=== PATIENT | male | born 1960 | race Caucasian/White ===

== ENCOUNTER 2016-07-15 07:39 | Inpatient (IN) | payer MEDICAID, OTHER ==
[~2016-07-15] VITALS: Ht 177.8 cm; Wt 135.6 kg
[2016-07-15] VITALS (15 sets, daily range): BP systolic 98–138; BP diastolic 55–80
[2016-07-15] MEDS ORDERED: ALBUTEROL FS 2.5 MG/3 ML VIAL.NEB ONE (08:05)
[2016-07-15] MEDS ORDERED: ALBUTEROL FS 2.5 MG/3 ML VIAL.NEB NEB ONE (08:30)
[2016-07-15 08:41] LABS: BASOPHILS % (AUTO) 0.5 % (0.0-2.0); DIFF TOTAL % 100 %; LYMPHOCYTES # (AUTO) 0.5 /CMM (0.8-4.8); MEAN CORPUSCULAR HEMOGLOBIN 26 PG (26.0-33.0); MEAN CORPUSCULAR HGB CONC 33 g/dl (31.0-36.0); MEAN CORPUSCULAR VOLUME 78 fL (80-96); MONOCYTES # (AUTO) 0.5 /CMM (0.1-1.30); MONOCYTES % (AUTO) 14.9 % (2.0-12.0); NEUTROPHILS # (AUTO) 2.1 /CMM (1.8-8.9); NEUTROPHILS % (AUTO) 68.6 % (43.0-81.0); PLATELET COUNT (AUTO) 63 /CMM (150-450); RED BLOOD CELL COUNT(AUTO) 2.44 MIL/uL (4.5-6.0); WHITE BLOOD COUNT (AUTO) 3.1 K/uL (4.3-11.0)
[2016-07-15 08:42] LABS: CALCIUM, SERUM 7.8 mg/dL (8.5-10.1); CREATININE 0.8 mg/dL (0.6-1.3); POTASSIUM 4.2 mmol/L (3.5-5.1)
[2016-07-15 08:43] LABS: HEMOGLOBIN 6.2 g/dL (13.5-17.5)
[2016-07-15 08:44] LABS: HEMATOCRIT 19 % (39-51)
[2016-07-15 08:50] LABS: TROPONIN I 0.019 ng/mL (0.00-0.056)
[2016-07-15 08:52] LABS: LACTIC ACID 0.8 mmol/L (0.4-2.0)
[2016-07-15 08:54] LABS: ALBUMIN 2.8 g/dL (3.4-5.0); BILIRUBIN,DIRECT 0.2 mg/dL (0.0-0.2); BILIRUBIN,TOTAL 0.6 mg/dL (0.2-1.0); INDIRECT BILIRUBIN 0.4 mg/dL (0.0-1.1); TOTAL PROTEIN, SERUM 5.7 g/dL (6.4-8.2)
[2016-07-15 09:00] LABS: INR 1.03 (0.87-1.13); PROTHROMBIN TIME 11.1 SECS (9.5-12.7)
[2016-07-15] MEDS ORDERED: SPIR25TA4 PO (09:13)
[2016-07-15] MEDS ORDERED: DILT120C2 PO (09:13)
[2016-07-15 09:56] LABS: ANISOCYTOSIS 1+; BAND % (MANUAL) 1 % (0.0-5.0); EOSINOPHILS % (MANUAL) 2 % (0-4); HYPOCHROMASIA 1+; LYMPHOCYTES % (MANUAL) 19 % (16-48); MICROCYTOSIS 1+; PLATELET ESTIMATE DECREASED
[2016-07-15 09:57] LABS: ABG BASE EXCESS 1.1 mmol/L; ABG HCO3 25.2 mmol/L; ABG PCO2 37.6 mmHg (35.0-45.0); ABG PH 7.444 (7.350-7.450); ABG PO2 83.2 mmHg (75.0-100.0); ABG TOTAL HEMOGLOBIN 6.8 G/dL (13.5-18.0); ALLEN TEST Pass; AaDO2 21.5 mmHg; O2Hb 92.7 % (94.0-97.0)
[2016-07-15] MEDS ORDERED: MORPHINE SULFATE INJ 2 MG/ML DISP.SYRIN IV ONE (10:00)
[2016-07-15] MEDS ORDERED: PANTOPRAZOLE 80 MG in IV NS 0.9% 500 ML IV ONE (10:00)
[2016-07-15] MEDS ORDERED: MORPHINE SULFATE INJ 2 MG/ML DISP.SYRIN ONE (10:16)
[2016-07-15] MEDS ORDERED: IV SET PRIMARY PUMP SET 1 EA INFUS.SET MC ONE ×2 (10:17→12:12)
[2016-07-15] MEDS ORDERED: IV NS 0.9% 1,000 ML IV PRN (11:07)
[2016-07-15] MEDS ORDERED: Z GUARD REMEDY 2 OZ OINT TP PRN (11:30)
[2016-07-15] MEDS: DILTIAZEM HCL CD 120 MG PO SCH (11:30)
[2016-07-15] MEDS ORDERED: MAG HYDROX/AL HYDROX/SIMETH 30 ML UDC PO PRN (11:30)
[2016-07-15] MEDS ORDERED: ONDANSETRON HCL/PF 4 MG/2 ML VIAL IVP PRN (11:30)
[2016-07-15] MEDS: FUROSEMIDE 40 MG/4 ML VIAL IV SCH ×2 (11:30→16:41)
[2016-07-15] MEDS ORDERED: ACETAMINOPHEN 325 MG TABLET PO PRN (11:30)
[2016-07-15] MEDS: SPIRONOLACTONE 25 MG TABLET PO SCH (11:30)
[2016-07-15] MEDS ORDERED: PANTOPRAZOLE 40 MG TABLET.DR PO SCH (11:30)
[2016-07-15] MEDS ORDERED: ZOLPIDEM TARTRATE 5 MG TABLET PO PRN (11:30)
[2016-07-15] MEDS: HYDROMORPHONE 1 MG/1 ML DISP.SYRIN IV PRN ×2 (12:08→21:51)
[2016-07-15] MEDS ORDERED: BLOOD IV SET 1 EA INFUS.SET MC ONE ×2 (12:12→17:58)
[2016-07-15] MEDS ORDERED: IV NS 0.9% 250 ML IV ONE (12:12)
[2016-07-16] VITALS (14 sets, daily range): BP systolic 100–138; BP diastolic 52–86
[2016-07-16] MEDS: HYDROMORPHONE 1 MG/1 ML DISP.SYRIN IV PRN ×3 (03:47→21:35)
[2016-07-16 07:14] LABS: ALBUMIN 2.6 g/dL (3.4-5.0); BILIRUBIN,TOTAL 0.6 mg/dL (0.2-1.0); CALCIUM, SERUM 7.5 mg/dL (8.5-10.1); CREATININE 0.7 mg/dL (0.6-1.3); PHOSPHORUS 3.8 mg/dL (2.5-4.9); POTASSIUM 4.1 mmol/L (3.5-5.1); TOTAL PROTEIN, SERUM 5.5 g/dL (6.4-8.2)
[2016-07-16 08:13] LABS: BASOPHILS % (AUTO) 0.7 % (0.0-2.0); DIFF TOTAL % 100 %; HEMATOCRIT 22 % (39-51); HEMOGLOBIN 7.3 g/dL (13.5-17.5); LYMPHOCYTES # (AUTO) 0.5 /CMM (0.8-4.8); LYMPHOCYTES % (AUTO) 20.7 % (20.0-44.0); MEAN CORPUSCULAR HEMOGLOBIN 26 PG (26.0-33.0); MEAN CORPUSCULAR HGB CONC 33 g/dl (31.0-36.0); MEAN CORPUSCULAR VOLUME 79 fL (80-96); MONOCYTES # (AUTO) 0.3 /CMM (0.1-1.30); MONOCYTES % (AUTO) 14.8 % (2.0-12.0); NEUTROPHILS # (AUTO) 1.5 /CMM (1.8-8.9); NEUTROPHILS % (AUTO) 63.8 % (43.0-81.0); PLATELET COUNT (AUTO) 57 /CMM (150-450); RED BLOOD CELL COUNT(AUTO) 2.83 MIL/uL (4.5-6.0); WHITE BLOOD COUNT (AUTO) 2.3 K/uL (4.3-11.0)
[2016-07-16] MEDS: PANTOPRAZOLE 40 MG TABLET.DR PO SCH (08:24)
[2016-07-16] MEDS: DILTIAZEM HCL CD 120 MG PO SCH (08:24)
[2016-07-16] MEDS: FUROSEMIDE 40 MG/4 ML VIAL IV SCH ×2 (08:24→23:42)
[2016-07-16] MEDS: SPIRONOLACTONE 25 MG TABLET PO SCH (08:24)
[2016-07-16] MEDS ORDERED: SPIRONOLACTONE 25 MG TABLET PO SCH (09:00)
[2016-07-16] MEDS ORDERED: MIDAZOLAM HCL 2 MG/2ML VIAL ONE (09:19)
[2016-07-16 11:51] LABS: ANISOCYTOSIS 1+; BAND % (MANUAL) 2 % (0.0-5.0); HYPOCHROMASIA 1+; LYMPHOCYTES % (MANUAL) 34 % (16-48); MICROCYTOSIS 1+; PLATELET ESTIMATE DECREASED
[2016-07-16] MEDS ORDERED: FUROSEMIDE 40 MG/4 ML VIAL IV ONE (15:00)
[2016-07-16] MEDS ORDERED: BLOOD IV SET 1 EA INFUS.SET MC ONE (16:47)
[2016-07-16] MEDS ORDERED: IV NS 0.9% 250 ML IV ONE (16:47)
[2016-07-16 18:01] LABS: BASOPHILS % (AUTO) 0.7 % (0.0-2.0); DIFF TOTAL % 100 %; HEMATOCRIT 23 % (39-51); HEMOGLOBIN 7.4 g/dL (13.5-17.5); LYMPHOCYTES # (AUTO) 0.5 /CMM (0.8-4.8); LYMPHOCYTES % (AUTO) 16.6 % (20.0-44.0); MEAN CORPUSCULAR HEMOGLOBIN 26 PG (26.0-33.0); MEAN CORPUSCULAR HGB CONC 33 g/dl (31.0-36.0); MEAN CORPUSCULAR VOLUME 79 fL (80-96); MONOCYTES # (AUTO) 0.4 /CMM (0.1-1.30); MONOCYTES % (AUTO) 15.1 % (2.0-12.0); NEUTROPHILS # (AUTO) 1.9 /CMM (1.8-8.9); NEUTROPHILS % (AUTO) 67.6 % (43.0-81.0); PLATELET COUNT (AUTO) 63 /CMM (150-450); RED BLOOD CELL COUNT(AUTO) 2.89 MIL/uL (4.5-6.0); WHITE BLOOD COUNT (AUTO) 2.8 K/uL (4.3-11.0)
[2016-07-16 19:29] LABS: EOSINOPHILS % (MANUAL) 2 % (0-4); LYMPHOCYTES % (MANUAL) 8 % (16-48)
[2016-07-16 19:30] LABS: ANISOCYTOSIS 2+; HYPOCHROMASIA 1+; MICROCYTOSIS 1+; PLATELET ESTIMATE DECREASED
[2016-07-17 01:14] VITALS: BP 113/65
[2016-07-17] MEDS: HYDROMORPHONE 1 MG/1 ML DISP.SYRIN IV PRN ×2 (04:56→12:20)
[2016-07-17 07:14] LABS: BASOPHILS % (AUTO) 0.6 % (0.0-2.0); DIFF TOTAL % 100 %; HEMATOCRIT 25 % (39-51); HEMOGLOBIN 8.3 g/dL (13.5-17.5); LYMPHOCYTES # (AUTO) 0.5 /CMM (0.8-4.8); LYMPHOCYTES % (AUTO) 15.1 % (20.0-44.0); MEAN CORPUSCULAR HEMOGLOBIN 26 PG (26.0-33.0); MEAN CORPUSCULAR HGB CONC 33 g/dl (31.0-36.0); MEAN CORPUSCULAR VOLUME 78 fL (80-96); MONOCYTES # (AUTO) 0.5 /CMM (0.1-1.30); MONOCYTES % (AUTO) 16.9 % (2.0-12.0); NEUTROPHILS # (AUTO) 2.1 /CMM (1.8-8.9); NEUTROPHILS % (AUTO) 67.4 % (43.0-81.0); PLATELET COUNT (AUTO) 66 /CMM (150-450); RED BLOOD CELL COUNT(AUTO) 3.21 MIL/uL (4.5-6.0); WHITE BLOOD COUNT (AUTO) 3.1 K/uL (4.3-11.0)
[2016-07-17 07:37] LABS: CALCIUM, SERUM 7.4 mg/dL (8.5-10.1); CREATININE 0.8 mg/dL (0.6-1.3); PHOSPHORUS 3.8 mg/dL (2.5-4.9); POTASSIUM 3.4 mmol/L (3.5-5.1)
[2016-07-17 07:52] LABS: BAND % (MANUAL) 5 % (0.0-5.0); EOSINOPHILS % (MANUAL) 2 % (0-4); LYMPHOCYTES % (MANUAL) 16 % (16-48); PLATELET ESTIMATE DECREASED
[2016-07-17 07:53] LABS: ANISOCYTOSIS 2+; HYPOCHROMASIA 1+; MICROCYTOSIS 2+
[2016-07-17 08:07] VITALS: BP 97/63
[2016-07-17] MEDS: PANTOPRAZOLE 40 MG TABLET.DR PO SCH (08:09)
[2016-07-17 08:10] VITALS: BP 97/63
[2016-07-17] MEDS: DILTIAZEM HCL CD 120 MG PO SCH (08:10)
[2016-07-17] MEDS: SPIRONOLACTONE 25 MG TABLET PO SCH (08:10)
[2016-07-17] MEDS: FUROSEMIDE 40 MG/4 ML VIAL IV SCH (08:14)
[2016-07-17] MEDS ORDERED: POTASSIUM CHLORIDE 20 MEQ TAB.PRT.SR PO SCH (11:30)
[2016-07-17] MEDS ORDERED: Magnesium 1GM/D5W 100ML PREMIX 100 ML IV SCH (11:30)
== END 2016-07-17 13:16 | disposition home or self-care (01) | DRG 194 ==
LOC: ER 07:41 → TELE 10:31 → MED 07-16 10:13
PROVIDERS: ADMIT Internal Medicine; ATTEND Internal Medicine
PROC: 30233N1 Transfusion of Nonautologous Red Blood Cells into Peripheral Vein, Percutaneous Approach (ICD-10-PCS; principal; 2016-07-15)
PROC: 05H633Z Insertion of Infusion Device into Left Subclavian Vein, Percutaneous Approach (ICD-10-PCS; 2016-07-15)
PROC: 0DJ08ZZ Inspection of Upper Intestinal Tract, Via Natural or Artificial Opening Endoscopic (ICD-10-PCS; 2016-07-16)
DX: I11.0 Hypertensive heart disease with heart failure (principal); J96.01 Acute respiratory failure with hypoxia; E43 Unspecified severe protein-calorie malnutrition; K74.60 Unspecified cirrhosis of liver; K72.90 Hepatic failure, unspecified without coma; E66.01 Morbid (severe) obesity due to excess calories; J44.9 Chronic obstructive pulmonary disease, unspecified; K92.2 Gastrointestinal hemorrhage, unspecified; R16.1 Splenomegaly, not elsewhere classified; I50.33 Acute on chronic diastolic (congestive) heart failure; D64.9 Anemia, unspecified; I48.91 Unspecified atrial fibrillation; I25.10 Atherosclerotic heart disease of native coronary artery without angina pectoris; G47.33 Obstructive sleep apnea (adult) (pediatric); E11.9 Type 2 diabetes mellitus without complications; B19.20 Unspecified viral hepatitis C without hepatic coma
CPT/HCPCS: 36415; 36600; 71010-TC; 76700-TC; 80048-TC; 80053-TC; 80061-TC; 80076-TC; 82105; 82140-TC; 83605-TC; 83735-TC; 83880; 84100-TC; 84484-TC; 85025-TC; 85730-TC; 86850-TC; 86901; 86921-TC; 87040-TC; 87081-TC; 87400; 93307-TC; 97001-TC; A4606; C9113; J1170; J1940; J2250; J2270; J2704; J7030; J7040; J7050; P9016-BL; Z7610

== ENCOUNTER 2016-07-18 13:26 | Emergency (ER) | payer OTHER ==
[~2016-07-18] VITALS: Ht 180.3 cm; Wt 136.1 kg
[2016-07-18 13:26] VITALS: BP 135/60
[~2016-07-18 13:26] MED LIST: DILT120C2 PO; SPIR25TA4 PO
[2016-07-18] MEDS ORDERED: oxyCODONE HCL SR 10MG TAB.SR.12H PO SCH (16:00)
== END 2016-07-18 17:02 | disposition left against medical advice (07) ==
LOC: ER 13:27
DX: N50.819 Testicular pain, unspecified (principal); G89.29 Other chronic pain; I10 Essential (primary) hypertension; I50.9 Heart failure, unspecified; I48.91 Unspecified atrial fibrillation; B19.20 Unspecified viral hepatitis C without hepatic coma; E11.9 Type 2 diabetes mellitus without complications; K74.60 Unspecified cirrhosis of liver; I85.00 Esophageal varices without bleeding
CPT/HCPCS: 99281; A4606; Z7610; Z7502